=== PATIENT | male | born 1995 | race Caucasian/White ===

== ENCOUNTER 2017-07-31 09:10 | Day surgery (SDC) | payer BC ==
[~2017-07-31 09:10] MED LIST: BACITRACIN INJ 50,000 UNIT VIAL ONE; BUPIVACAINE HCL 0.5 % INJ/PF 30 ML SDV ONE; CEFAZOLIN 1 GM/D5W RTU 1 GM/50 ML RTUPB IV PRN; LIDOCAINE 1%/EPINEPHRINE INJ 20 ML VIAL ONE; NORMAL SALINE INJ/PF 0.9% 10 ML SDV ONE; POLYMYXIN B SULFATE INJ 500000 UNIT VIAL ONE
[2017-07-31] MEDS ORDERED: BUPIVACAINE INJ/PF LIPOSOME/PF 266 MG/20 ML SDV ONE (10:11)
[2017-07-31] MEDS ORDERED: DEXAMETHASONE SOD PHOSPHATE INJ 4 MG/1 ML VIAL ONE (10:13)
[2017-07-31] MEDS ORDERED: FENTANYL CITRATE INJ/PF 100 MCG/2 ML AMPUL ONE (10:14)
[2017-07-31] MEDS ORDERED: ONDANSETRON HCL INJ/PF 4 MG/2 ML SDV ONE (10:14)
[2017-07-31] MEDS ORDERED: MIDAZOLAM 2 MG/2 ML INJ ONE (10:14)
[2017-07-31] MEDS ORDERED: PROPOFOL INJ 200 MG/20 ML VIAL IV ONE (10:15)
[2017-07-31] MEDS ORDERED: LIDOCAINE 2% INJ (20 MG/ML) 20 ML MDV ONE (10:35)
--- NOTE | 2017-07-31 13:13 | [facility] DISCHARGE SUMMARY E ---
[facility] Discharge Summary NAME: KALYANI MCGUIRE AGE: 21Y ADMITTED: 07/31/2017 DISCHARGED: 07/31/2017 SURGICAL PROCEDURE: Excision of hypertrophied navicular bone with removal of accessory bone left foot. 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 SURGEON: Jeannette Fernando DPM POLICE INVESTIGATOR: Herson Perez DPM HOSPITAL COURSE: The patient was admitted to [facility] with a chief complaint of pain along the inside of his left foot. He stated that whenever he walked or wore shoes, he was having pain. X-rays revealed an enlargement of the navicular bone with an accessory bone. The patient desired to have this problem surgically corrected because conservative therapy failed. He underwent the above surgical procedure without any complications and was transferred to the recovery room. He was discharged with a surgical shoe and an ice pack. He was given postoperative instructions. Patient was given a followup appointment in the doctors office in 1 week. He was then discharged from [facility]. DICTATING PHYSICIAN: JEANNETTE FERNANDO D.P.M. [id number] PHY#: [id number] ID: [id number] JOB#: [id number] ACCT: [id number] cc:JEANNETTE FERNANDO DPM >
--- NOTE | 2017-07-31 15:03 | [facility] OPERATIVE REPORT E ---
[facility] Operative Report NAME: KALYANI MCGUIRE AGE: 21Y DATE OF SURGERY: 07/31/2017 ROOM: PREOPERATIVE DIAGNOSIS: Hypertrophied navicular bone with accessory navicular bone, left foot. 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 SURGICAL PROCEDURE: Excision of hypertrophied navicular bone with removal of accessory bone, left foot. SURGEON: JEANNETTE WALTON DPM [facility] DEVELOPER: REMINGTON BOWEN DPM DESCRIPTION OF PROCEDURE: Following the induction of IV regional local anesthesia, the left foot and leg were prepped and draped in the usual sterile manner. A pneumatic tourniquet was placed around the left ankle and inflated to 250 mmHg after exsanguination of the limb via Esmarch bandage. The following surgical procedure was then performed: Excision of hypertrophied bone, navicular, with removal of accessory bone, left foot. Attention was directed to the medial aspect of the left foot, where an approximately 6 cm curvilinear incision was made just above the navicular bone. The incision was deepened via blunt dissection. All bleeders were clamped and Bovied as necessary for the purposes of hemostasis. An incision was then made through the capsule to the level of the bone and the capsule was reflected medially and laterally from the navicular. Utilizing osteotome and mallet, the hypertrophied bone on the medial aspect of the navicular was removed in toto. The accessory bone was then identified. It was freed from its ligamentous attachments via sharp dissection and removed in toto from the wound. An x-ray was taken and it was noted that more bone needed to be removed from the navicular. Again, utilizing a combination of straight and curved osteotome and mallet, the enlarged bone on the medial aspect of the navicular was removed. The area was then rasped smooth utilizing a Imalogix crosscut rasp and a nasal rasp. An x-ray was taken again and it was noted that the enlarged navicular had been removed. The accessory bone had been totally removed and that the bone on the medial aspect of navicular now was lined up correctly with the medial cuneiform. The area was then flushed with copious amounts of an antibacterial saline solution. Bone wax was then applied to the navicular. The capsular tissue was then coapted and maintained utilizing simple interrupted sutures of 3-0 Vicryl. The subcutaneous tissue was coapted and maintained utilizing simple interrupted sutures of 4-0 Vicryl, and 20 mL of Exparel were then injected along the incision. The skin was then coapted and maintained utilizing horizontal mattress sutures of 5-0 nylon. A dry sterile dressing was then applied, consisting of Samuel's silk, 4 x 4's, Conform, Kerlix, and Coban. The pneumatic tourniquet was released. It was noted that all digits were warm and viable and the patient was transferred to the recovery room. DICTATING PHYSICIAN: JEANNETTE WALTON D.P.M. [id number] PHY#: [id number] ID: [id number] JOB#: [id number] ACCT: [id number] cc:JEANNETTE WALTON DPM >
--- NOTE | 2017-07-31 21:33 | RADIOLOGY REPORT (SQ) ---
EXAM DESCRIPTION: NO CHG FLUORO; FOOT LEFT 2 VIEWS COMPLETED DATE/TIME: 07/31/2017 6:50 pm REASON FOR STUDY: LT FOOT EXCISION OF ENLARGED NAVICULAR BONE COMPARISON: None. FLUOROSCOPY TIME: 11 seconds 3 Images saved to PACS LIMITATIONS: None. PROCEDURE: Excision enlarged navicular bone FINDINGS: 3 images obtained from fluoro document the procedure. IMPRESSION: Excision of enlarged navicular bone. Refer to operative note for further information. COMMENT: PQRS 6045F: Fluoroscopy time of the procedure is documented in the report. TECHNICAL DOCUMENTATION: JOB ID: [id number] [employer]- All Rights Reserved Reading location - IP/workstation name: [email or web address]
--- NOTE | 2017-07-31 21:33 | RADIOLOGY REPORT (SQ) ---
EXAM DESCRIPTION: NO CHG FLUORO; FOOT LEFT 2 VIEWS COMPLETED DATE/TIME: 07/31/2017 6:50 pm REASON FOR STUDY: LT FOOT EXCISION OF ENLARGED NAVICULAR BONE COMPARISON: None. FLUOROSCOPY TIME: 11 seconds 3 Images saved to PACS LIMITATIONS: None. PROCEDURE: Excision enlarged navicular bone FINDINGS: 3 images obtained from fluoro document the procedure. IMPRESSION: Excision of enlarged navicular bone. Refer to operative note for further information. COMMENT: PQRS 6045F: Fluoroscopy time of the procedure is documented in the report. TECHNICAL DOCUMENTATION: JOB ID: [id number] [employer]- All Rights Reserved Reading location - IP/workstation name: [email or web address]
== END 2017-07-31 13:20 | disposition home or self-care (01) ==
LOC: SC 09:10
PROVIDERS: ATTEND Podiatrist Foot Surgery
PROC: 0QBM0ZZ Excision of Left Tarsal, Open Approach (ICD-10-PCS; principal; 2017-07-31 09:45)
DX: M89.372 Hypertrophy of bone, left ankle and foot (principal)
CPT/HCPCS: 73620; 28899; J2250; J3490 ×5; J0690; J1100; J3010; J2405; J2704; C9290; 01480